=== PATIENT | female | born 1965 | race Caucasian/White ===

== ENCOUNTER → 2024-05-15 07:21 | Outpatient (REF) | payer OTHER, SELFPAY | LOC: HWWDC 07:21 | PROVIDERS: ATTENDING PHYSICIAN Obstetrics & Gynecology; FAMILY PHYSICIAN Family Medicine | DX: Z12.31 Encounter for screening mammogram for malignant neoplasm of breast (principal) | CPT/HCPCS: 77063; 77067 ==

== ENCOUNTER → 2024-07-02 16:38 | Outpatient (REF) | payer OTHER, SELFPAY | LOC: RAD 16:38 | PROVIDERS: ATTENDING PHYSICIAN Internal Medicine; FAMILY PHYSICIAN Family Medicine | DX: M54.9 Dorsalgia, unspecified (principal) | CPT/HCPCS: 74176 ==